=== PATIENT | male | born 1950 | race Caucasian/White ===

== ENCOUNTER 2021-12-05 10:11 | Outpatient (CLI) | payer OTHER | END 2021-12-05 10:29 | disposition home or self-care (01) | LOC: RAD 10:11 | PROVIDERS: ATTEND Internal Medicine Pulmonary Disease | DX: J42 Unspecified chronic bronchitis (principal) ==

== ENCOUNTER 2024-01-24 15:43 | Outpatient (CLI) | payer OTHER | END 2024-01-24 16:10 | disposition home or self-care (01) | LOC: SONOGRAMA 15:43 | DX: N40.0 Benign prostatic hyperplasia without lower urinary tract symptoms (principal) ==